=== PATIENT | male | born 1985 | race Caucasian/White ===

== ENCOUNTER 2025-05-25 14:09 | Outpatient (CLI) | payer MEDICAID ==
--- NOTE | 2025-05-25 15:01 | RADIOLOGY REPORT ---
CLINICAL HISTORY: VENTRAL HERNIA WITHOUT OBSTRUCTION OR GANGRENE TECHNIQUE: CT of the abdomen and pelvis was performed without IV contrast. This exam was performed according to our departmental dose optimization program. Up-to-date CT equipment and radiation dose reduction techniques are utilized as appropriate. CTDI 14.7 DLP 727 COMPARISON: None FINDINGS: Abdomen/Pelvis: The spleen, pancreas, adrenal glands, kidneys, gallbladder, liver, bladder, and prostate gland are grossly unremarkable. The abdominal aorta is normal in course and caliber. There are minimal aortic atherosclerotic calcifications. There is no free intraperitoneal air or fluid. There is no enlarged abdominal pelvic lymph node. There is no bowel wall thickening or dilatation. The appendix is normal. There is a moderate amount of stool in the colon. There is no significant ventral hernia. Other: The imaged lower thorax is unremarkable. No acute osseous abnormality is evident. Impression: No acute noncontrast CT abnormality in the abdomen / pelvis. Constipation.
[2025-05-25] MEDS ORDERED: CEPH-585 PO (18:20)
== END 2025-05-25 23:59 | disposition home or self-care (01) ==
LOC: RAD 14:09
PROVIDERS: ATTEND Family Medicine
DX: K43.9 Ventral hernia without obstruction or gangrene (principal)
CPT/HCPCS: 74176

== ENCOUNTER 2025-05-25 14:32 | Emergency (ER) | payer MEDICAID ==
[~2025-05-25] VITALS: Ht 172.7 cm; Wt 75.0 kg
[2025-05-25] MEDS: LIDOcaine 1% 30ml preserv. free vial IJ STA (17:14)
--- NOTE | 2025-05-25 17:25 | Physician Documentation ---
History of Present Illness ~ Chief Complaint: Finger pain Stated Complaint: R FINGER PAIN Time Seen by MD: 15:55 Primary Medical Doctor: [facility] HPI The patient is a very pleasant 39-year-old male that presents to the emergency department for evaluation of small area of cellulitis around the right ring finger. Patient reports that he frequently bites his nails or cut his nails too short. This time he has become infected. Very painful to the touch. Patient denies fever chills nausea vomiting diarrhea at this time. Tetanus within 5 years: No Medication Reconciliation Allergies: Coded Allergies: No Known Allergies (Unverified , 05/25/25) Review of Systems ROS As stated above in the HPI, otherwise all systems are reviewed and negative. Physical Exam Vital Signs: Temperature: 98.1, Heart Rate: 68, Respiratory Rate: 16, BP: 117/76, Pulse Oximetry: 97, Weight: 75.000 Oxygen Flow Rate: 0 Physical Exam VITALS: Reviewed and as above. GENERAL: Alert, no apparent distress. SKIN: Warm and dry, small area of erythema edema and warmth noted around the cuticle of the nail. NEURO: Oriented x4, No motor or sensory deficit PSYCH: Normal mood and affect, no agitation Progress Results/Orders Results/Orders Completed Orders - SHELIA FABIAN [employer] Lidocaine 1% 30ml Vial (Xylocaine 1% Via (05/25/25 17:05) Cephalexin Capsule (Keflex Capsule) (05/25/25 17:25) Medications Received in ER Medications (Trade) Dose Ordered Sig/[facility] Route PRN Reason Start Time Stop Time Status Last Admin Dose Admin (Xylocaine 1% vial) 10 ml ONCE STAT IJ 05/25/25 17:05 05/25/25 17:07 DC 05/25/25 17:14 10 ML (Keflex capsule) 500 mg ONCE ONCE PO 05/25/25 17:25 05/25/25 17:31 DC 05/25/25 17:36 500 MG Vital Signs 05/25/25 05/25/25 14:47 18:10 Temp 98.1 Pulse 68 60 Resp 16 15 B/P (MAP) 117/76 128/63 (84) Pulse Ox 97 99 O2 Flow Rate 0 Medical Decision Making Additional information obtaine: other Findings Chief Complaint: Right ring finger cellulitis History of Present Illness: This is a 39-year-old male who presented to the emergency department with a small area of cellulitis around the right ring finger. The patient reports a history of frequently biting his nails or cutting them too short. On this occasion, the area became infected and is very painful to the touch. The patient denies fever, chills, nausea, vomiting, or diarrhea. Physical Examination: Examination revealed cellulitis of the right ring finger with localized erythema, warmth, and tenderness. A small collection amenable to drainage was identified. Procedures Performed: Incision and drainage was performed with evacuation of a small amount of purulent drainage. Medical Decision-Making: Diagnosis: Cellulitis of the right ring finger with abscess, status post incision and drainage. Risk Assessment: The patient is at low risk for complications given the localized nature of the infection, absence of systemic symptoms, successful drai nage, and plan for appropriate antibiotic therapy and follow-up. Treatment Plan: The patient was prescribed cephalexin (Keflex) for outpatient antibiotic therapy Wound care instructions provided Follow-up arranged with primary care provider Return precautions discussed, including worsening erythema, spreading infection, fever, increased pain, or development of systemic symptoms Disposition: Discharged home in stable condition with close outpatient follow- up. Patient Education: The patient was counseled regarding the importance of avoiding nail biting and cutting nails too short to prevent recurrent infections. The patient verbalized understanding of discharge instructions, medication regimen, wound care, and return precautions. General Diff Dx:Considerations: Include: Abrasion, Contusion, Fracture, Hematoma, Laceration, Malunion, Neurovascular injury, Open fracture, Sprain, Ulcer, Other Shoulder Diff Dx:Consideration: Include: AC separation, Adhesive capsulitis, Arthritis, Bicipital tendonitis, Calcific tendonitis, Cervical disc disease, Contusion, Dislocation, Fracture-humerus, Fracture-scapula, Fracture-clavicle, GB disease, Hematoma, Impingement syndrome, Myocardial infarction, Neurovascular injury, Open fracture-humerus, Open fracture-scapula, Open fracture-clavicle, Rotator cuff injury, SC dislocatoin, Sprain, Subacromial bursitis, Other Elbow Diff Dx:Considerations: Include: Abrasion, Arthritis, Contustion, DJD, Fracture-humerus, Fracture-radial head, Fracture-radius, Fracture-ulna, Gout, Hematoma, Laceration, Neurovascular injury, Olecranon bursitis, Open fracture, Osteomyelitis, Radial head subluxation, Rheumatoid arthritis, Septic, Sprain, Ulcer, Other Wrist Diff Dx:Considerations: Include: Abrasion, Arthritis, DJD, Gout, Rheumatoid, Septic, Carpal tunnel snydrome, Contusion, Dislocation, Fracture- carpal, Fracture-radius, Fracture-ulna, Ganglion, Laceration, Neurovascular injury, Open fracture, Strain, Other Hand Diff Dx:Considerations: Include: Abrasion, Arthritis, Contusion, DJD, Felon, Fracture-carpal, Fracture-metacarpal, Fracture-phalynx, Fracture-radius, Fracture-ulna, Gout, Hematoma, Herpetic tali, Laceration, Neurovascular injury, Open fracture, Paronychia, Rheumatoid arthritis, Septic, Sprain, Subungual hematoma, Tenosynovitis, Volar plate injury, Cellulitis, Malunion, Other Finger Diff Dx:Considerations: Include: Abrasion, Cellulitis, Contusion, Dislocation, Fracture, Hematoma, Laceration, Neurovascular injury, Open fracture, Subungual hematoma, Other Departure Disposition: 01 HOME / SELF CARE / HOMELESS Impression: Primary Impression: Abscess Condition: Stable Discharge Instructions: Abscess/Boil Additional Instructions: Your Diagnosis: You have an infection in the skin around your right ring finger called cellulitis. This likely happened because of nail biting or cutting your nails too short, which allowed bacteria to get under the skin. What We Did Today: We made a small cut to drain the infection (incision and drainage) We prescribed an antibiotic called cephalexin (Keflex) to help fight the infection Taking Your Antibiotic: Take cephalexin exactly as prescribed Finish all of the medication, even if your finger starts to feel better The typical treatment course is 5 days, but your doctor may extend this if the infection has not improved Take the medication with food if it upsets your stomach Wound Care: Keep the area clean and dry Wash your hands before and after touching the wound You may cover the area with a clean, dry bandage Change the bandage daily or if it gets wet or dirty Watch for drainage - a small amount is normal in the first few days What to Watch For: Call your primary care doctor or return to the emergency department if you notice: The redness, swelling, or pain gets worse instead of better The red area spreads or gets bigger You develop a fever (temperature over 100.4F or 38C) You see red streaks going up your arm from the infected area Pus or increased drainage from the wound No improvement within 24-48 hours of starting the antibiotic Important Tips to Prevent Future Infections: Avoid biting your nails - this is the most important step to prevent this from happening again When trimming your nails, don't cut them too short Keep your hands and nails clean Moisturize dry or cracked skin around your nails Follow-Up: Schedule an appointment with your primary care doctor within the next few days Your doctor will check to make sure the infection is improving Activity: You can use your hand for normal daily activities Try to keep your hand elevated (raised above your heart level) when resting to help reduce swelling This means propping your hand up on pillows when sitting or lying down When to Seek Emergency Care: Go to the emergency department right away if you develop: High fever with chills Severe pain that is not controlled with [id number] pain medication Numbness or tingling in your finger Inability to move your finger Signs that the infection is spreading rapidly Most people with cellulitis improve within a few days of starting antibiotics. However, some redness and swelling may remain even after the bacteria are gone, as your body continues to heal. If you have any questions or concerns, don't hesitate to call your primary care doctor or return to the emergency department. Referrals: NO PRIMARY CARE PROVIDER (PCP) Prescriptions Cephalexin*Monohydrate* (Keflex*) 500 Mg Capsule 1 CAP PO QID for 7 Days, #28 CAP Prov: SHELIA FABIAN 05/25/25 Education Educated: Patient Educated regarding: diagnosis, treatment, need for follow up Signature Scribe Signature: A Attestation: Scribed for Shelia Fabian by ERIKA Ribeiro . 05/25/25 18:21 SHELIA FABIAN May 25, 2025 17:25
[2025-05-25 18:10] VITALS: BP 128/63; PULSE 60; RESP 15; O2SAT 99
[2025-05-25] MEDS ORDERED: CEPH-585 PO (18:20)
[2025-05-25 18:22] VITALS: TEMP 98.1
== END 2025-05-25 18:25 | disposition home or self-care (01) ==
LOC: ER 14:33
DX: L02.511 Cutaneous abscess of right hand (principal); L03.011 Cellulitis of right finger
CPT/HCPCS: 26010; 99283; J2003